=== PATIENT | female | born 1995 | race Caucasian/White ===

== ENCOUNTER 2018-08-11 19:56 | Emergency (ER) | payer SELFPAY ==
[~2018-08-11] VITALS: Ht 167.6 cm; Wt 62.7 kg
[~2018-08-11 19:56] MED LIST: CARAFATE 1GM1 G PO; COMPAZINE 110 MG/TAB PO; FLONASE NASAL S16 GM NS; MACROBID 1100 MG/CAP PO; NEXIUM 40MG40 MG PO; PREVACID 30MG30 M1 PO; RT ADVAIR 128 DISKUS IH; VENTOLIN0.09 MG IH; VISTARIL50 MG PO; ZANTAC 150MG T150 MG PO; ZOFRAN 4MG T4 MG/TAB PO; ZYRTEC 10MG10 MG PO
[2018-08-11 19:57] VITALS: BP 129/87; TEMP 96.8
[2018-08-11] MEDS ORDERED: LEXAPRO20 MG PO (20:18)
[2018-08-11] MEDS ORDERED: WELLBUTRIN XL150 MG PO (20:18)
[2018-08-11 21:26] VITALS: PULSE 73
== END 2018-08-11 21:27 | disposition home or self-care (01) ==
LOC: COL.ER 19:56
DX: F07.81 Postconcussional syndrome (principal); Z79.51 Long term (current) use of inhaled steroids; W21.89XA Striking against or struck by other sports equipment, initial encounter; Y92.219 Unspecified school as the place of occurrence of the external cause